=== PATIENT | male | born 2000 | race American Indian/Alaskan Native ===

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

== ENCOUNTER 2018-02-06 23:40 | Emergency (ER) | payer BC ==
[2018-02-07 02:25] VITALS: BP 123/76
--- NOTE | 2018-02-07 08:02 | Emergency Department Report ---
ED Male HPI - General Chief complaint: Urogenital-Male Stated complaint: URINATION PROBLEMS Time Seen by Provider: 02/07/18 07:48 Source: patient Mode of arrival: Ambulatory Limitations: No Limitations - History of Present Illness Initial comments: This 17-year-old male here reports that he has penile discharge since 1 week and no poor burning. He said last time he was here he had a urinary tract infection and he was treated STD. Patient is concerned about STD and would like to be treated. He states that he practices safe sex. Denies any pain in his abdomen or back. Denies any fever or chills or nausea or vomiting. MD Complaint: penile discharge, hernia Onset/Timin -: week(s) Location: penis (when urinating and) Radiation: none Severity: mild Severity scale (0 -10): 1 Quality: burning Consistency: intermittent Improves with: other (after urinating) Worsens with: urination new sexual partner discharge, dysuria. denies: swelling, mass, rash, urinary retention, blood in urine, fever, nausea/vomiting, incontinence - Related Data Sexually active: Yes Previous Rx's Medication Instructions Recorded Last Taken Type Doxycycline [Vibramycin CAP] 100 mg PO Q12HR #20 capsule 09/01/17 Unknown Rx Ciprofloxacin HCl [Cipro] 500 mg PO Q12H 10 Days #20 tablet 02/07/18 Unknown Rx Allergies Allergy/AdvReac Type Severity Reaction Status Date / Time No Known Allergies Allergy Unverified 09/01/17 20:26 ED Review of Systems ROS: Stated complaint: URINATION PROBLEMS Other details as noted in HPI Constitutional: denies: chills, fever Eyes: as per HPI. denies: eye discharge ENT: denies: throat pain Respiratory: denies: cough, shortness of breath, wheezing Cardiovascular: denies: chest pain, palpitations Gastrointestinal: denies: abdominal pain, nausea, vomiting, diarrhea Genitourinary: dysuria, discharge. denies: urgency, frequency, hematuria, testicular pain, testicular mass Musculoskeletal: denies: back pain Skin: denies: rash, lesions ED Past Medical Hx - Past Medical History Previous Medical History?: Yes Hx Hypertension: Yes Hx Psychiatric Treatment: Yes (ADHD) - Surgical History Past Surgical History?: No - Family History Family history: hypertension - Social History Smoking Status: Current Every Day Smoker Substance Use Type: Alcohol, Marijuana - Medications Home Medications: Home Medications Medication Instructions Recorded Confirmed Last Taken Type Doxycycline [Vibramycin CAP] 100 mg PO Q12HR #20 capsule 09/01/17 Unknown Rx Ciprofloxacin HCl [Cipro] 500 mg PO Q12H 10 Days #20 tablet 02/07/18 Unknown Rx ED Physical Exam - General Limitations: No Limitations General appearance: alert, in no apparent distress - Head Head exam: Present: atraumatic, normocephalic, normal inspection - Eye Eye exam: Present: normal appearance, PERRL, EOMI Pupils: Present: normal accommodation - ENT ENT exam: Present: normal exam, normal orophraynx, mucous membranes moist - Neck Neck exam: Present: normal inspection. Absent: lymphadenopathy - Respiratory Respiratory exam: Present: normal lung sounds bilaterally. Absent: respiratory distress, chest wall tenderness - Cardiovascular Cardiovascular Exam: Present: regular rate, normal rhythm, normal heart sounds - GI/Abdominal GI/Abdominal exam: Present: soft, normal bowel sounds. Absent: distended, tenderness, rigid - Extremities Exam Extremities exam: Present: normal inspection, full ROM, normal capillary refill , other (No cce. + 2 pulses in all extremities, no neurovascular compromise). Absent: tenderness - Back Exam Back exam: Present: normal inspection - Neurological Exam Neurological exam: Present: alert, oriented X3, normal gait - Psychiatric Psychiatric exam: Present: normal affect, normal mood - Skin Skin exam: Present: warm, dry, intact, normal color. Absent: rash ED Course Vital Signs 02/07/18 02:16 Temperature 98.5 F Pulse Rate 58 L Respiratory 18 Rate Blood Pressure 123/76 O2 Sat by Pulse 99 Oximetry - Reevaluation(s) Reevaluation #1: 02/07/18 08:51 Patient given azithromycin 1 g by mouth to treat chlamydia and Rocephin 250 milligram for gonorrhea. Stable. ED Medical Decision Making - Lab Data Lab Results 02/07/18 Range/Units 07:34 Urine Color Yellow (Yellow) Urine Turbidity Slightly-cloudy (Clear) Urine pH 5.0 (5.0-7.0) Ur Specific [place] 1.000 L (1.003-1.030) Urine Protein 100 mg/dl (Negative) mg/dL Urine Glucose (UA) Neg (Negative) mg/dL Urine Ketones Neg (Negative) mg/dL Urine Blood Sm (Negative) Urine Nitrite Neg (Negative) Urine Bilirubin Neg (Negative) Urine Urobilinogen 2.0 (<2.0) mg/dL Ur Leukocyte Esterase Mod (Negative) Urine WBC (Auto) 46.0 H (0.0-6.0) /HPF Urine RBC (Auto) 8.0 (0.0-6.0) /HPF Urine Mucus Few /HPF Urine culture pending Urine for gonorrhea and chlamydia pending - Medical Decision Making This is a 17-year-old male here concerned for STD and having penile discharge with burning 1 week. Patient's was last year and 09/01/2017 and 12/14/2017 and treated for similar problems. Patient is requested to be tested and treated for STD. He said he wears a condom and he does not know how he is given penile discharge. He denies any fever or chills. Denies abdominal back pain. Denies any nausea or vomiting. Pain is 1-10. Pain with urination and better after urinating . I examined patient and examination is normal. Patient is treated empirically for penile discharge and concern for STD. He is also be treated for urinary tract infection due to elevated white count in urine and moderate leukocyte Estrace. Urine culture sent. I informed patient about is labs find in and treatment plan. He is in agreement. I encouraged him to practice safe sex and to go to the health department in 7 days to be tested if his gonorrhea and chlamydia test that was done here today is positive. I informed the patient return to medical records department 5 days to laboratory report for gonorrhea and chlamydia. He voiced understanding. Discharged home in stable condition with prescription for ciprofloxacin to treat UTI and he is aware that he needs to [facility] and how department for STD recheck if needed. Critical care attestation.: If time is entered above; I have spent that time in minutes in the direct care of this critically ill patient, excluding procedure time. ED Disposition Clinical Impression: Concern about STD in male without diagnosis, Abnormal penile discharge, with blood Disposition: DC-01 TO HOME OR SELFCARE Is pt being admited?: No Does the pt Need Aspirin: No Condition: Stable Instructions: Safe Sex (ED), Sexually Transmitted Diseases (ED), Dysuria (ED), Urinary Tract Infection in Men (ED) Additional Instructions: Please practice safe sex partner know that you are treated for STD and emergency room today Takes ciprofloxacin for urinary tract infection Prescriptions: Ciprofloxacin HCl [Cipro] 500 mg PO Q12H 10 Days #20 tablet Referrals: [facility] [Outside] - 7-10 days Forms: Work/School Release Form(ED)
[2018-02-07 08:26] LABS: Bilirubin,Urine NEG (Negative); Blood,Urine SM (Negative); Color,Urine Yellow (Yellow); Mucus,Urine FEW /HPF
[2018-02-07] MEDS ORDERED: ZITHROMAX PO ONE (08:46)
[2018-02-07] MEDS ORDERED: ROCEPHIN IM STA (08:46)
[2018-02-07] MEDS ORDERED: XYLOCAINE 1% MPF 5 mL INFILTRATI ONE ×2 (08:46→08:52)
[2018-02-07] MEDS ORDERED: ROCEPHIN IM ONE (08:52)
== END 2018-02-07 09:12 | disposition home or self-care (01) ==
LOC: ED 23:40
DX: R36.9 Urethral discharge, unspecified (principal); R31.9 Hematuria, unspecified; I10 Essential (primary) hypertension; F17.200 Nicotine dependence, unspecified, uncomplicated; F12.90 Cannabis use, unspecified, uncomplicated; F90.9 Attention-deficit hyperactivity disorder, unspecified type; Z79.899 Other long term (current) drug therapy
CPT/HCPCS: 81001; 87086; 87591; 96372; 99283; J0696